=== PATIENT | female | born 1990 | race African-American/Black ===

== ENCOUNTER → 2019-08-21 | Day surgery (SDC) | payer MEDICARE, OTHER ==
[2019-08-17 12:49] LABS: BASOPHILS % 0.6 % (0.0-1.0); EOSINOPHILS # (AUTO) 0.4 (0.0-0.4); EOSINOPHILS % 5.4 % (0.0-6.0); HEMATOCRIT 36.2 % (34.2-44.1); HEMOGLOBIN 11.6 g/dL (12.0-16.0); LYMPHOCYTES # (AUTO) 0.9 (1.0-3.2); LYMPHOCYTES % 13.6 % (18.0-39.1); MEAN CORPUSCULAR HEMOGLOBIN 25.8 pg (28-32); MEAN CORPUSCULAR VOLUME 80.4 fL (81-99); MONOCYTES # (AUTO) 0.7 (0.2-0.8); MONOCYTES % 9.6 % (4.4-11.3); NEUTROPHILS # (AUTO) 4.8 (2.1-6.9); NEUTROPHILS % 70.5 % (38.7-80.0); PLATELET COUNT 208 x10e3/uL (140-360); RED CELL DISTRIBUTION WIDTH 17.2 % (11.7-14.4)
[2019-08-17 13:12] LABS: ALANINE AMINOTRANSFERASE 15 IU/L (0-55); ALBUMIN 4.2 g/dL (3.5-5.0); ALKALINE PHOSPHATASE 101 IU/L (40-150); ANION GAP 14.8 mmol/L (8-16); BLOOD UREA NITROGEN 19 mg/dL (7-26); BUN/CREATININE RATIO 3 (6-25); CALCIUM 8.6 mg/dL (8.4-10.2); CARBON DIOXIDE 29 mmol/L (22-29); CHLORIDE 97 mmol/L (98-107); CREATININE, SERUM 6.61 mg/dL (0.57-1.11); EST GLOMERULAR FILTRATION RATE 9 ML/MIN (60-); GLUCOSE 79 mg/dL (74-118); POTASSIUM 3.8 mmol/L (3.5-5.1); SODIUM 137 mmol/L (136-145)
[~2019-08-21] VITALS: Ht 175.3 cm; Wt 74.8 kg
[2019-08-21] VITALS (11 sets, daily range): BP systolic 132–156; BP diastolic 77–89
[~2019-08-21] MED LIST: ALPRAZOLAM 0.5 MG TAB ONE; DIPHENHYDRAMINE HCL INJ 50 MG/ML VIAL ONE; FAMOTIDINE 20 MG/2 ML VIAL IV ONE; FENTANYL CITRATE/PF 100MCG/2 ML INJ ONE; HEPARIN SOD (PORCINE) 1000 UNIT/ML 30ML ONE; HEPARIN SOD/SOD CHLORIDE 2,000 ML ONE; IOPAMIDOL 370 MG/ML 200 ML INFUS..BTL INJ ONE; LIDOCAINE HCL 2% LOCAL 20 ML VIAL ONE; METHYLPREDNISOLONE SOD SUCC 125 MG/2ML VIAL ONE; METOPROLOL PO; MIDAZOLAM HCL 2 MG/2 ML VIAL ONE; MINOXIDIL2.5 MG PO; NITROGLYCERIN/D5W 200 MCG/ML 250 ML ONE; PhosLo PO; RENA-VITE TABL0.8 MG PO; SODIUM CHLORIDE 0.9% 1000ML 1,000 ML ONE; VERAPAMIL HCL 2.5 MG/ML 2 ML VIAL ONE
--- NOTE | 2019-08-21 10:25 | NUR ---
Dr. Brambila called back and stated okay to continue home medications.
--- NOTE | 2019-08-21 10:40 | NUR ---
IV to right antecubital removed and dressing placed per unit protocol. Dressing to right antecubital clean,dry, and intact. Dressing to right wrist is clean,dry, and intact. Right wrist support in place. Patient and patient's boyfriend Casimiro instructed to remove wrist support tomorrow morning. Reviewed discharge medication reconciliation with patient and patient's boyfriend Casimiro. Patient instructed to have blood pressure taken on leg during dialysis tomorrow. Patient and Casimiro verbalized understanding and had no questions at his time. Patient discharged to private vehicle via wheelchair with patient's boyfriend Casimiro as funeral driver. Patient discharged with belongings. No distress noted at time of discharge.
--- NOTE | 2019-10-10 08:32 | Operative Report ---
DATE OF PROCEDURE: 08/21/2019 SURGEON: Everardo Brambila MD INDICATION: Coronary artery disease, congestive heart failure. COMPLICATIONS: None. BLOOD LOSS: Minimal. RECOMMENDATION: Subcutaneous ICD placement for nonischemic cardiomyopathy. PROCEDURES PERFORMED: 1. Left heart catheterization, selective coronary angiography. 2. Conscious sedation, 35 minutes. 3. Ultrasound-guided access in the right radial artery. DESCRIPTION OF PROCEDURE: Access obtained in the right radial artery. A 5-Syriac sheath was placed. Coronary angiography demonstrated mild coronary artery disease, 10 in 20% luminal stenosis. No critical stenosis or occlusions were noted. No intervention necessary. Right wrist TR band applied. The patient discharged home same day. Everardo Brambila MD [facility] /[id number]
== END | disposition home or self-care (01) ==
LOC: CATH LAB 06:27
PROVIDERS: ATTEND Internal Medicine Interventional Cardiology
DX: I50.42 Chronic combined systolic (congestive) and diastolic (congestive) heart failure (principal); I25.10 Atherosclerotic heart disease of native coronary artery without angina pectoris; I42.8 Other cardiomyopathies; I31.3 Pericardial effusion (noninflammatory); I51.7 Cardiomegaly; N18.6 End stage renal disease; J45.909 Unspecified asthma, uncomplicated; F41.9 Anxiety disorder, unspecified; Z01.812 Encounter for preprocedural laboratory examination; Z11.59 Encounter for screening for other viral diseases; Z99.2 Dependence on renal dialysis; Z82.49 Family history of ischemic heart disease and other diseases of the circulatory system; Z82.3 Family history of stroke
CPT/HCPCS: 36415 ×2; 76937; 80053; 84702 ×2; 85025; 87635; 93454; C1769; C1887; J1200; J1644; J2001; J2250; J2930; J3010; J7030; Q9967; 99152; U0002